=== PATIENT | male | born 1985 | race African-American/Black ===

== ENCOUNTER 2020-05-14 14:51 | Observation (INO) ==
[2020-05-14 15:59] LABS: Basophils % 0.5 % (0.0-0.8); Eosinophils # 0.2 10*3/uL (0.0-0.87); Eosinophils % 2.5 % (0.00-10.9); Hematocrit 42.7 VOL% (42.0-52.0); Hemoglobin 14.8 GM/DL (14.0-18.0); Immature Granulocytes % 0.3 %; Immature Granulocytes Absolute 0.02 #; Lymphocytes % 31.1 % (21.2-54.2); Mean Corpuscular HGB Conc 34.7 GM/DL (32-36); Mean Platelet Volume 10.9 FL (9.6-12.0); Monocytes % 11.5 % (1.7-12.7); Neutrophils % 54.1 % (38.7-73.9); Platelet Count 183 T/CUMM (130-400); Red Blood Count 4.69 MC/CUMM (3.8-5.5); Red Cell Distribution Width 12.8 % (9.3-17.3); White Blood Count 6.4 T/CUMM (4-12)
[2020-05-14 16:01] LABS: Barbiturates Screen,Urine Negative (Negative); Benzodiazepines Screen,Urine Negative (Negative); Cannabinoid Screen,Urine Positive (Negative); Opiate Screen,Urine Negative (Negative); Phencyclidine Screen,Urine Negative (Negative)
[2020-05-14 16:26] LABS: Alanine Aminotransferase 124 U/L (16-61); Albumin 4.1 G/DL (3.4-5.0); Alkaline Phosphatase 73 U/L (45-117); Aspartate Amino Transferase 118 U/L (0-37); Blood Urea Nitrogen 8 MG/DL (7-18); Calcium 9.6 MG/DL (8.5-10.1); Estimated Glom Filtration Rate 124 ML/MIN; Glucose 91 MG/DL (74-106); Osmolality,Calculated 272.7 MOS/KG (273-304); Total Protein 7.9 G/DL (6.4-8.3)
[2020-05-14 16:46] LABS: Acetaminophen < 2.0 UG/ML (10-30); Salicylate < 2.8 MG/DL (2.8-20)
[2020-05-14] MEDS ORDERED: DEXTROSE 50% 25 GM/50 ML VIAL IV PRN (18:09)
[2020-05-14] MEDS ORDERED: LACTULOSE 20 GM/30 ML UDCUP PO PRN (18:09)
[2020-05-14] MEDS ORDERED: ONDANSETRON 4 MG/2 ML VIAL IV PRN (18:09)
[2020-05-14] MEDS ORDERED: hydrALAZINE 20 MG/1 ML VIAL IV PRN (18:09)
[2020-05-14] MEDS ORDERED: DOCUSATE SODIUM 100 MG CAPSULE PO PRN (18:09)
[2020-05-14] MEDS ORDERED: NICOTINE 21 MG/24 HR PATCH TRANSDERM PRN (18:09)
[2020-05-14] MEDS ORDERED: GLUCAGON 1 MG VIAL IM PRN (18:09)
[2020-05-14] MEDS ORDERED: POTASSIUM CHLORIDE 20 MEQ TABLET PO STA (18:13)
[2020-05-14] MEDS ORDERED: SODIUM CHLORIDE 0.9% 1,000 ML IV SCH (18:30)
[2020-05-14] MEDS ORDERED: ENOXAPARIN 40 MG/0.4 ML SYRINGE SUBCUT SCH (21:00)
[2020-05-15 02:58] VITALS: BP 148/88
[2020-05-15] MEDS ORDERED: PANTOPRAZOLE 40 MG TABLET PO SCH (09:00)
== END 2020-05-14 22:10 | disposition left against medical advice (07) ==
LOC: EDBD → EDUNIT# → N.EDINP 14:51 → N.ED 14:51 → N.4E 18:40
PROVIDERS: ADMIT Internal Medicine; ATTEND Internal Medicine